=== PATIENT | male | born 1985 | race Caucasian/White ===

== ENCOUNTER 2019-11-27 11:24 | Emergency (ER) | payer SELFPAY ==
[~2019-11-27] VITALS: Ht 193 cm; Wt 136.4 kg
[2019-11-27 12:00] VITALS: BP 131/68
[2019-11-27] MEDS ORDERED: KETOROLAC TROMETHAMINE 10 MG TABLET PO STA (12:42)
--- NOTE | 2019-11-27 12:49 | PHYS DOC ---
Past Medical History Past Medical History: Other Additional Past Medical Histor: SLEEP APNEA Past Surgical History: Other Additional Past Surgical Histo: RIGHT FOOT AND ANKLE SURGERY Smoking Status: Current Every Day Smoker Alcohol Use: Sober Adult General Chief Complaint Chief Complaint: ANKLE PROBLEM HPI HPI Patient is a 34 year old male who presents with lateral right foot pain has been ongoing for 3 days. The patient states he had surgery on the area that hurts on his foot and ankle around 11 years ago. He states that it is hurting b adly enough that he cannot put weight on the foot. He rates his pain a 7 out of 10 in severity and sharp. Denies any additional symptoms. Complete ROS were reviewed and found to be within normal limits, except as documented in the HPI Current Medications Current Medications Current Medications Medications (Trade) Dose Ordered Sig/Jose Roberto Start Time Stop Time Status Last Admin Dose Admin Ketorolac Tromethamine (Toradol) 10 mg 1X STAT 11/27/19 12:42 11/27/19 12:52 DC 11/27/19 12:58 10 MG Allergies Allergies Allergies Coded Allergies Type Severity Reaction Last Updated Verified No Known Drug Allergies 11/27/19 No Physical Exam Physical Exam Constitutional: Well developed, well nourished, no acute distress, non-toxic appearance. [] HENT: Normocephalic, atraumatic, bilateral external ears normal, oropharynx moist, no oral exudates, nose normal. []] Extremities: Tenderness to Lateral ankle with noted bump to that area. Neurologic: Alert and oriented X 3, normal motor function, normal sensory function, no focal deficits noted. [] Psychologic: Affect normal, judgement normal, mood normal. [] Current Patient Data Vital Signs Vital Signs Date Time Temp Pulse Resp B/P (MAP) Pulse Ox O2 Delivery O2 Flow Rate FiO2 11/27/19 12:00 97.4 88 14 131/68 (89) 96 Room Air 97.4 EKG EKG [] Radiology/Procedures Radiology/Procedures [][facility] [address] [place] [address] IMAGING REPORT Signed PATIENT: HENRY QUEZADA ACCOUNT: [id number] : 1985 LOCATION: ER AGE: 34 SEX: M EXAM STATUS: REG ER ORD. PHYSICIAN: ALFRED HERNANDEZ APRN REASON: pain, unable to walk,pt had previous surgery, feels like screw in foot move PROCEDURE: ANKLE RIGHT 3V ANKLE RIGHT 3V, FOOT RIGHT 3V History: Pain, unable to walk. COMPARISON: None Three-view right ankle: Lateral plate and screws transfix the distal fibula. No evidence of acute fracture. No aggressive bone destruction. There appears to be in nonacute fracture defect at the posterior malleolus of the distal tibia. Small ossicle just below the medial malleolus. Minimal widening of the lateral tibiotalar joint. Mild soft tissue swelling at the lateral ankle. Tibiotalar joint effusion. 3 view right foot: Partially threaded cannulated screw transfixing a transverse fracture at the proximal fifth metatarsal. Mild soft tissue swelling lateral to this. The fracture line is clearly visualized without evidence of healing. Calcaneal enthesophytes are noted. IMPRESSION: 1. Small tibiotalar joint effusion. Lateral ankle soft tissue swelling. 2. Nonacute appearing fracture defect at the posterior malleolus of the distal tibia. 3. Screw transfixing an ununited fracture at the proximal fifth metatarsal. Electronically signed by: Alfred Covarrubias MD (11/27/2019 1:37 PM) [id number] DICTATED and SIGNED BY: ALFRED COVARRUBIAS MD DATE: 11/27/19 1337 Course & Med Decision Making Course & Med Decision Making Pertinent Labs and Imaging studies reviewed. (See chart for details) Will get imaging and give supportive care. Imaging shows: IMPRESSION: 1. Small tibiotalar joint effusion. Lateral ankle soft tissue swelling. 2. Nonacute appearing fracture defect at the posterior malleolus of the distal tibia. 3. Screw transfixing an ununited fracture at the proximal fifth metatarsal. Electronically signed by: Alfred Covarrubias MD (11/27/2019 1:37 PM) [id number] Patient is having pain to the area of surgery. Will have follow up with ortho. Will give crutches and have be non-weighting bearing until cleared by ortho. Dragon Disclaimer Dragon Disclaimer This electronic medical record was generated, in whole or in part, using a voice recognition dictation system. Departure Departure Impression: Primary Impression: Foot pain, right Disposition: 01 HOME, SELF-CARE Condition: STABLE Referrals: NO PCP (PCP) RANJEET SAEED II, MD Additional Instructions: Thank you for visiting [facility]. We appreciate you trusting us with your care. If any additional problems come up don't hesitate to return to visit us. Please follow up with your primary care provider so they can plan additional care if needed and know about the problem that you had. If symptoms worsen come back to the Emergency Department. Any concerning symptoms that start such as chest pain, shortness of air, weakness or numbness on one side of the body, running high fevers or any other concerning symptoms return to the ER. Please follow up with orthopedics about this issue. Please use crutches and be nonweightbearing until orthopedic visit. ALFRED HERNANDEZ APRN Nov 27, 2019 12:49
--- NOTE | 2019-11-27 13:40 | RAD ---
ANKLE RIGHT 3V, FOOT RIGHT 3V History: Pain, unable to walk. COMPARISON: None Three-view right ankle: Lateral plate and screws transfix the distal fibula. No evidence of acute fracture. No aggressive bone destruction. There appears to be in nonacute fracture defect at the posterior malleolus of the distal tibia. Small ossicle just below the medial malleolus. Minimal widening of the lateral tibiotalar joint. Mild soft tissue swelling at the lateral ankle. Tibiotalar joint effusion. 3 view right foot: Partially threaded cannulated screw transfixing a transverse fracture at the proximal fifth metatarsal. Mild soft tissue swelling lateral to this. The fracture line is clearly visualized without evidence of healing. Calcaneal enthesophytes are noted. IMPRESSION: 1. Small tibiotalar joint effusion. Lateral ankle soft tissue swelling. 2. Nonacute appearing fracture defect at the posterior malleolus of the distal tibia. 3. Screw transfixing an ununited fracture at the proximal fifth metatarsal. Electronically signed by: Alfred Covarrubias MD (11/27/2019 1:37 PM) [id number]
== END 2019-11-27 14:14 | disposition home or self-care (01) ==
LOC: ER 11:24
DX: M79.671 Pain in right foot (principal); M25.571 Pain in right ankle and joints of right foot; F17.200 Nicotine dependence, unspecified, uncomplicated; Z98.890 Other specified postprocedural states
CPT/HCPCS: 73610; 73630; 99284